=== PATIENT | female | born 1995 | race Asian ===

== ENCOUNTER 2019-03-22 20:46 | Emergency (ER) | payer SELFPAY ==
--- NOTE | 2019-03-22 20:56 | ED ---
Complex/Multi-Sys Presentation - HPI Summary HPI Summary: 23 yo female presents to [facility] via EMS with complaints of numbness. She tells me that around 1530 this afternoon she had a strong coffee. About an hour later she developed tingling sensation to her face, chest, and arms that has been persistent since. She admits that she drank alcohol last night and felt nauseous this morning, but that resolved. She did return from [place] within the last month. Denies any drug or alcohol use today. She denies sore throat, difficulty breathing, SOB, chest pain, abdominal pain, n/v, dysuria, headache, dizziness. She denies PMHx. She denies any allergies or medications. She denies hx of anxiety or depression. Also denies SI/HI or wanting to hurt herself - History Of Current Complaint Chief Complaint: EDGeneral Time Seen by Provider: 03/22/19 20:50 Hx Obtained From: Patient Onset/Duration: Sudden Onset Severity Currently: Moderate Severity Initially: Moderate - Allergies/Home Medications Allergies/Adverse Reactions: Allergies Allergy/AdvReac Type Severity Reaction Status Date / Time No Known Allergies Allergy Verified 03/22/19 20:54 PMH/Surg Hx/FS Hx/Imm Hx Endocrine/Hematology History: Denies: Hx Blood Disorders, Hx Diabetes Cardiovascular History: Denies: Hx Hypotension, Hx Hypertension, Hx Syncope Respiratory History: Denies: Hx Asthma, Hx Chronic Obstructive Pulmonary Disease (COPD) GI History: Denies: Hx Gastroesophageal Reflux Disease History: Denies: Hx Chronic Renal Failure, Hx Dialysis Neurological History: Denies: Hx CVA, Hx Headaches, Hx Migraine, Hx Peripheral Neuropathy, Hx Seizures, Hx Transient Ischemic Attacks (TIA) Psychiatric History: Denies: Hx Anxiety, Hx Attention Deficit Hyperactivity Disorder, Hx Autism Infectious Disease History: No Infectious Disease History: Reports: Traveled Outside the [place] in Last 30 Days - [facility] 03/05 - Social History Alcohol Use: Rare Substance Use Type: Reports: None Smoking Status (MU): Never Smoked Tobacco Review of Systems Constitutional: Negative Eyes: Negative ENT: Negative Cardiovascular: Negative Respiratory: Negative Gastrointestinal: Negative Genitourinary: Negative Musculoskeletal: Negative Skin: Negative Positive: Paresthesia Psychological: Normal All Other Systems Reviewed And Are Negative: No Physical Exam - Summary Physical Exam Summary: GENERAL: NAD. WDWN. Mildly anxious appearing. SKIN: No rashes, sores, ulcers, masses, lesions. HEENT: Head: AT/NC. Eyes: PERRLA. EOM intact. Conjunctiva clear without inflammation or discharge. Ears: Hearing grossly normal. TMs intact, no bulging, erythema, or edema. Nose: Nasal mucosa pink and moist. NTTP maxillary and frontal sinus. Throat: Posterior oropharynx without exudates, erythema, or tonsillar enlargement. Uvula midline. NECK: Supple. Nontender. FROM CHEST: CTAB. No r/r/w. No accessory muscle use. Breathing comfortably and in no distress. CV: RRR. Without m/r/g. Pulses intact. Brisk cap refill. ABDOMEN: Soft. NTTP. Bowel sounds present MSK: FROM in B/L UEs and LEs with symmetric strength. NEURO: A&Ox3. 3 word recall, remote, recent memory, ability to follow 2-step directions, and attention intact. CN: II: Peripheral morgan intact. Vision normal. III, IV, : EOMI. No nystagmus. PERRLA. V: Sensations intact and symmetric. Opens mouth and clenches teeth. VII: No facial asymmetry. Forehead wrinkles. Grins, shuts eyes, frowns, puffs cheeks. VIII: Hearing intact to finger rub. IX, X: Swallows and coughs. Uvula midline. XI: Shrugs shoulders. Turns head against resistance. XII: No tongue deviation Fhawbl-fu-[id number] are intact. Gait with normal base. Romberg: maintains balance, no pronator drift. Normal speech. No facial drooping. PSYCH: Age appropriate behavior. Triage Information Reviewed: Yes Vital Signs On Initial Exam: Initial Vitals Temp Pulse Resp BP Pulse Ox 98.9 F 124 18 115/91 100 03/22/19 20:47 03/22/19 20:47 03/22/19 20:47 03/22/19 20:47 03/22/19 20:47 Vital Signs Reviewed: Yes Diagnostics - Vital Signs Vital Signs Temp Pulse Resp BP Pulse Ox 03/22/19 20:47 98.9 F 124 18 115/91 100 - Laboratory Lab Results: Laboratory Tests 03/22/19 03/22/19 03/22/19 21:15 21:15 21:31 WBC 4.8 RBC 4.63 Hgb 14.4 Hct 43 MCV 92 MCH 31 MCHC 34 RDW 13 Plt Count 221 MPV 8.5 Neut % (Auto) 68.8 Lymph % (Auto) 24.2 [place] % (Auto) 5.7 Eos % (Auto) 0.7 Baso % (Auto) 0.6 Absolute Neuts (auto) 3.3 Absolute Lymphs (auto) 1.2 Absolute Monos (auto) 0.3 Absolute Eos (auto) 0.0 Absolute Basos (auto) 0.0 Absolute Nucleated RBC 0.0 Nucleated RBC % 0.0 D-Dimer, Quantitative Sodium Potassium Chloride Carbon Dioxide Anion Gap BUN Creatinine Est GFR ( Amer) Est GFR (Non-Af Amer) BUN/Creatinine Ratio Glucose Lactic Acid Calcium Magnesium Total Bilirubin AST ALT Alkaline Phosphatase Troponin I Total Protein Albumin Globulin Albumin/Globulin Ratio TSH Beta HCG, Quant Urine Color Straw Urine Appearance Clear Urine pH 8.0 Ur Specific [place] 1.006 L Urine Protein Negative Urine Ketones Negative Urine Blood 2+ A Urine Nitrate Negative Urine Bilirubin Negative Urine Urobilinogen Negative Ur Leukocyte Esterase Negative Urine WBC (Auto) Trace(0-5/hpf) Urine RBC (Auto) Trace(0-2/hpf) Ur Squamous Epith Cells Present A Urine Bacteria Absent Urine Glucose Negative Urine Opiates Screen None detected Ur Barbiturates Screen None detected Ur Phencyclidine Scrn None detected Ur Amphetamines Screen None detected U Benzodiazepines Scrn None detected Urine Cocaine Screen None detected U Cannabinoids Screen None detected 03/22/19 03/22/19 03/22/19 21:31 21:31 21:31 WBC RBC Hgb Hct MCV MCH MCHC RDW Plt Count MPV Neut % (Auto) Lymph % (Auto) [place] % (Auto) Eos % (Auto) Baso % (Auto) Absolute Neuts (auto) Absolute Lymphs (auto) Absolute Monos (auto) Absolute Eos (auto) Absolute Basos (auto) Absolute Nucleated RBC Nucleated RBC % D-Dimer, Quantitative 379 H Sodium 140 Potassium 3.2 L Chloride 105 Carbon Dioxide 24 Anion Gap 11 BUN 11 Creatinine 0.99 H Est GFR ( Amer) 84.9 Est GFR (Non-Af Amer) 70.1 BUN/Creatinine Ratio 11.1 Glucose 96 Lactic Acid 3.0 H* Calcium 10.4 H Magnesium 2.0 Total Bilirubin 0.40 AST 17 ALT 14 Alkaline Phosphatase 50 Troponin I 0.00 Total Protein 8.3 Albumin 5.1 Globulin 3.2 Albumin/Globulin Ratio 1.6 TSH 1.51 Beta HCG, Quant 0.63 Urine Color Urine Appearance Urine pH Ur Specific [place] Urine Protein Urine Ketones Urine Blood Urine Nitrate Urine Bilirubin Urine Urobilinogen Ur Leukocyte Esterase Urine WBC (Auto) Urine RBC (Auto) Ur Squamous Epith Cells Urine Bacteria Urine Glucose Urine Opiates Screen Ur Barbiturates Screen Ur Phencyclidine Scrn Ur Amphetamines Screen U Benzodiazepines Scrn Urine Cocaine Screen U Cannabinoids Screen Result Diagrams: 03/22/19 21:31 03/22/19 21:31 Lab Statement: Any lab studies that have been ordered have been reviewed, and results considered in the medical decision making process. - CT CTA CT Interpretation Completed By: Radiologist Summary of CT Findings: IMPRESSION: 1. No visible acute pulmonary embolism. 2. No aortic dissection. Complex Multi-Symp Course/Dx Course Of Treatment: Labs as above. Noted to have mild hypokalemia, which was replenished with 20mg KCL po. Mildly elevated lactic acid and d-dimer. Given pt' s vauge symptoms, tachycardia, elevated d-dimer, and recent long flight; a CTA chest was ordered to r/o PE and was negative. Discussed results with pt and she was relieved to hear the good news and states that she feels much better overall. Will dc at this time and encourage her to f/u with [facility] next week or return to the ED if her symptoms return. Reviewed case with Dr. Ferguson and she agrees with plan of care and dispo. - Diagnoses Provider Diagnoses: Numbness Discharge ED - Sign-Out/Discharge Documenting (check all that apply): Patient Departure Patient Received Moderate/Deep Sedation with Procedure: No - Discharge Plan Condition: Stable Disposition: HOME Patient Education Materials: Paresthesia (ED) Referrals: No Primary Care Phys,NOPCP [Primary Care Provider] - Additional Instructions: If you develop a fever, shortness of breath, chest pain, the numbness returns, or if you have new or worsening symptoms - please call your PCP or return to the ED immediately. Your CT scan of your chest was normal this evening - Billing Disposition and Condition Condition: STABLE Disposition: Home
[2019-03-22 21:34] LABS: Urine Appearance Clear; Urine Bacteria Absent (Absent); Urine Bilirubin Negative (Negative); Urine Blood 2+ (Negative); Urine Color Straw; Urine Glucose Negative (Negative); Urine Ketones Negative (Negative); Urine Nitrite Negative (Negative); Urine Protein Negative (Negative); Urine Red Blood Cell Trace(0-2/hpf) (Absent); Urine Specific Gravity 1.006 (1.010-1.030); Urine Squamous Epithelial Cell Present (Absent); Urine Urobilinogen Negative (Negative); Urine White Blood Cell Trace(0-5/hpf) (Absent)
[2019-03-22 21:42] LABS: ABS Lymphocytes 1.2 10^3/ul (1.0-4.8); ABS Monocytes 0.3 10^3/ul (0-0.8); ABS Neutrophils 3.3 10^3/ul (1.5-7.7); Eosinophil % 0.7 %; Hematocrit 43 % (35-47); Hemoglobin 14.4 g/dL (12.0-16.0); Lymphocyte % 24.2 %; Mean Corpuscular HGB Conc 34 g/dL (31-36); Mean Corpuscular Hemoglobin 31 pg (27-31); Mean Corpuscular Volume 92 fL (80-97); Mean Platelet Volume 8.5 fL (7.4-10.4); Platelet Count 221 10^3/uL (150-450); Red Blood Count 4.63 10^6 /uL (3.70-4.87); Red Cell Distribution Width 13 % (10-15); White Blood Count 4.8 10^3/uL (3.5-10.8)
[2019-03-22 21:48] LABS: Urine Benzodiazepine Screen None Detected (None Detect); Urine Opiates Screen None Detected (None Detect)
[2019-03-22 21:58] LABS: Albumin 5.1 g/dL (3.2-5.2); Albumin/Globulin Ratio 1.6 (1-3); BUN/Creatinine Ratio 11.1 (8-20); Calcium 10.4 mg/dL (8.6-10.3); EGFR African American 84.9 (>60); EGFR Non-African American 70.1 (>60); Globulin 3.2 g/dL (2-4); Potassium 3.2 mmol/L (3.5-5.0); Total Bilirubin 0.4 mg/dL (0.2-1.0); Total Protein 8.3 g/dL (6.4-8.9)
[2019-03-22 22:03] LABS: HCG Pregnancy 0.63 mIU/mL
[2019-03-22] MEDS ORDERED: Potassium Chlor TAB* 20 MEQ TAB.ER PO ONE (22:07)
[2019-03-22] MEDS ORDERED: NS 0.9% 1000 ML** 1,000 ML IV ONE (22:07)
[2019-03-22 22:23] LABS: TSH (Thyroid Stimulating Horm) 1.51 mcIU/mL (0.34-5.60)
[2019-03-22] MEDS ORDERED: Iohexol 350* (CONTRAST) 500 ML MDV IV ONE (22:48)
[2019-03-23 00:06] VITALS: BP 105/62
== END 2019-03-23 00:06 | disposition home or self-care (01) ==
LOC: ED 20:46
DX: R20.0 Anesthesia of skin (principal)
CPT/HCPCS: 36415; 71275; 80053; 80307; 81003; 81015; 83605; 83735; 84443; 84484; 84702; 85025; 85379; 87086; 96360; 96361; 99282; A9270-GY; Q9967